=== PATIENT | male | born 1995 | race Caucasian/White ===

== ENCOUNTER 2018-04-24 08:36 | Emergency (ER) | payer BC ==
[~2018-04-24] VITALS: Ht 175.3 cm; Wt 65.0 kg
[2018-04-24 08:44] VITALS: TEMP 36.9; Ht 175.3 cm; Wt 65.0 kg
[2018-04-24] MEDS ORDERED: AZITHROMYCIN 250 MG TAB PO ONE (09:00)
[2018-04-24] MEDS ORDERED: HIV POST EXPOSURE PROPHYLAXIS KIT ONE (09:00)
[2018-04-24] MEDS ORDERED: CEFTRIAXONE SOD 350MG/ML 1 GM VIAL IM ONE (09:00)
[2018-04-24] MEDS ORDERED: HYDR25CA PO (09:10)
[2018-04-24] MEDS ORDERED: VNTHFA/IN INH (09:10)
[2018-04-24] MEDS ORDERED: TRVHP PO (09:19)
[2018-04-24] MEDS ORDERED: RALT400T PO (09:19)
--- NOTE | 2018-04-24 09:20 | EMERGENCY ROOM VISIT NOTE ---
History Report prepared by Loli: Maria C Garza Under the Supervision of: Dr. Juan Manuel Powers D.O. First contact with patient: 08:55 Chief Complaint: STD MALE Stated Complaint: POSSIBLE EXPOSURE TO HIV History of Present Illness The patient is a 22 year old male who presents to the Emergency Room with complaints of an episode of potential STD exposure beginning 3 days ago. He states he had intercourse with a woman and the condom broke, causing concern for exposure. The patient notes he is asymptomatic, and is unsure if the woman is experiencing any symptoms as he has not spoken to her. He states he does not believe any bleeding was involved, but cannot be certain as the room was dark. The patient notes his [place] is in [place]. Source of History: patient Onset: 3 days ago Position: other Quality: other (potential STD exposure) Timing: other (episode) Note: Denies: any symptoms Review of Systems See HPI for pertinent positives & negatives. A total of 10 systems reviewed and were otherwise negative. Past Medical & Surgical Medical Problems: (1) No chronic problems No chronic problems Family History No pertinent family history stated. Social History Marital Status: single Housing Status: lives with roommate Occupation Status: student Current/Historical Medications Scheduled Albuterol Hfa (Ventolin Hfa), 2-4 PUFFS INH Q6H Emtricitabine/Temofovir (Truvada 200/300MG), 1 TAB PO DAILY Hydroxyzine Pamoate (Vistaril), 1 CAP PO BID Raltegravir Potassium (Isentress), 1 TAB PO BID Allergies Coded Allergies: Grass (Unverified Allergy, Unknown, unknown, 04/24/18) Uncoded Allergies: CATS (Allergy, Unknown, unknown, 04/24/18) DOGS (Allergy, Unknown, unknown, 04/24/18) Physical Exam Vital Signs Date Time Temp Pulse Resp B/P (MAP) Pulse Ox O2 Delivery O2 Flow Rate FiO2 04/24/18 08:44 36.9 65 20 130/77 98 Room Air Physical Exam CONSTITUTIONAL/VITAL SIGNS: Reviewed / noted above. GENERAL: Non-toxic in appearance. INTEGUMENTARY: Warm, dry, and Reedy. HEAD: Normocephalic. EYES: without scleral icterus or trauma. ENT/OROPHARYNX: clear and moist. LYMPHADENOPATHY/NECK: Is supple without lymphadenopathy or meningismus. RESPIRATORY: Lungs clear and equal. CARDIOVASCULAR: Regular rate and rhythm. GI/ABDOMEN: Soft and nontender. No organomegaly or pulsatile mass. No rebound or guarding. Normal bowel sounds. EXTREMITIES: Warm and well perfused. BACK: No CVA tenderness. NEUROLOGICAL: Intact without focal deficits. PSYCHIATRIC: normal affect. MUSCULOSKELETAL: Normally developed with good muscle tone. Medical Decision & Procedures Laboratory Results Test 04/24/18 09:41 Hepatitis B Surface Antibody NEG Hepatitis C Antibody NEG (NEG) HIV (1&2) Ab and P24 Ag, 4th Gener NEG (NEG) Laboratory results as stated above per my review. Medications Administered Medications (Trade) Dose Ordered Sig/Rachel Route Start Time Stop Time Status Last Admin Dose Admin Miscellaneous (Hiv Post Exposure Prophylaxis Kit) 1 ea NOW ONCE N/A 04/24/18 09:00 04/24/18 09:10 DC 04/24/18 09:00 1 EA Ceftriaxone Sodium (Rocephin Im) 250 mg NOW ONCE IM 04/24/18 09:00 04/24/18 09:10 DC 04/24/18 09:50 250 MG Azithromycin (Zithromax Tab) 1,000 mg NOW ONCE PO 04/24/18 09:00 04/24/18 09:10 DC 04/24/18 09:51 1,000 MG ED Course 0857: Previous medical records were reviewed. The patient was evaluated in room A4B. A complete history and physical examination was performed. 0900: Ordered Azithromycin 1000 mg PO, Rocephin Im 250 mg IM, HIV Post Exposure Prophylaxis Kit 1 ea. 1117: On reevaluation, the patient is resting. I discussed the results and findings with the patient. He verbalized agreement of the treatment plan. The patient was discharged home. Medical Decision The differential includes possible exposure to STDs including chlamydia, gonorrhea, syphilis, HIV etc. This is a 22-year-old male who reports that he had unprotected sex 2 days ago with a female that he does not know. He states that his condom broke. It was dark. He does not know the person or how to contact her. He is unsure if she was having any symptoms. The patient currently has no symptoms. He is looking for prophylaxis for STDs and HIV. The patient is otherwise in no distress and without symptoms. His vital signs are stable. The patient was treated with IM Rocephin as well as p.o. Zithromax. He was started on HIV prophylaxis, per his request. Baseline labs were drawn. HIV, hepatitis B and hepatitis C testing were negative. The patient was counseled on this with a pre-lab and result counseling. He was started on Truvada and Isentress. He was given the home pack of this plus prescriptions. Medication Reconcilliation Current Medication List: was personally reviewed by me Blood Pressure Screening Patient's blood pressure: Normal blood pressure Blood pressure disposition: Did not require urgent referral Impression Primary Impression: Concern about STD in male without diagnosis Additional Impressions: Screen for STD (sexually transmitted disease) Possible exposure to STD Scribe Attestation The scribe's documentation has been prepared under my direction and personally reviewed by me in its entirety. I confirm that the note above accurately reflects all work, treatment, procedures, and medical decision making performed by me. Departure Information Dispostion Home / Self-Care Prescriptions Raltegravir Potassium (ISENTRESS) 400 Mg Tab 1 TAB PO BID for 30 Days, #60 TAB 0 Refills Prov: Juan Manuel Powers D.O. 04/24/18 Emtricitabine/Temofovir (Truvada 200/300MG) Tab 1 TAB PO DAILY for 30 Days, #30 TAB 1 Refill Prov: Juan Manuel Powers D.O. 04/24/18 Referrals No Doctor, Assigned (PCP) Forms HOME CARE DOCUMENTATION FORM, IMPORTANT VISIT INFORMATION, WORK / SCHOOL INSTRUCTIONS Patient Instructions STD Sx Men Teen, STDs Reduce Risk Teen Additional Instructions Take Truvada and Isentress as prescribed for HIV prophylaxis. Follow-up with [facility]. Call tomorrow for an appointment. Problem Qualifiers
[2018-04-24 11:13] LABS: HEP C IGG 13 YRS+OLDER_RFLX NEG (NEG)
[2018-04-24 11:34] VITALS: BP 124/71; PULSE 61; O2SAT 99
== END 2018-04-24 11:34 | disposition home or self-care (01) ==
LOC: C.EDB 08:39 → C.EDA 11:34
DX: Z20.2 Contact with and (suspected) exposure to infections with a predominantly sexual mode of transmission (principal); Z11.3 Encounter for screening for infections with a predominantly sexual mode of transmission; Z11.4 Encounter for screening for human immunodeficiency virus [HIV]